=== PATIENT | male | born 1975 | race Two or more races ===

== ENCOUNTER 2024-04-01 20:41 | Emergency (ER) | payer OTHER ==
[~2024-04-01] VITALS: Ht 188 cm; Wt 81.6 kg
[~2024-04-01 20:41] MED LIST: BACL20TA PO; DOCU-270 PO; SENN-18 PO
[2024-04-01] MEDS ORDERED: MORPHINE SULFATE INJ 4 MG/ML DISP.SYRIN ONE (22:34)
[2024-04-01] MEDS ORDERED: ACETAMINOPHEN ES 500 MG TABLET ONE (22:34)
[2024-04-01] MEDS ORDERED: ONDANSETRON HCL/PF 4 MG/2 ML VIAL ONE (22:34)
[2024-04-01] MEDS: MORPHINE SULFATE INJ 2 MG/ML DISP.SYRIN IV ONE (22:45)
[2024-04-01] MEDS: ACETAMINOPHEN ES 500 MG TABLET PO ONE (22:45)
[2024-04-01] MEDS: ONDANSETRON HCL/PF 4 MG/2 ML VIAL IVP ONE (22:46)
[2024-04-01] MEDS: IV NS 0.9% 1,000 ML BAG IV ONE (22:46)
[2024-04-01 23:13] LABS: BASOPHILS % (AUTO) 0.4 % (0.0-2.0); EOSINOPHILS # (AUTO) 0.3 K/uL (0.0-0.7); EOSINOPHILS % (AUTO) 3.7 % (0.0-6.0); HEMATOCRIT 37 % (39-51); HEMOGLOBIN 12.2 g/dL (13.5-17.5); LYMPHOCYTES # (AUTO) 1.6 K/uL (0.8-4.8); LYMPHOCYTES % (AUTO) 20.6 % (20.0-44.0); MEAN CORPUSCULAR HEMOGLOBIN 26 PG (26.0-33.0); MEAN CORPUSCULAR HGB CONC 33 g/dl (31.0-36.0); MEAN CORPUSCULAR VOLUME 80 fL (80-96); MONOCYTES # (AUTO) 0.6 K/uL (0.1-1.30); MONOCYTES % (AUTO) 7.2 % (2.0-12.0); NEUTROPHILS # (AUTO) 5.2 K/uL (1.8-8.9); NEUTROPHILS % (AUTO) 68.1 % (43.0-81.0); PLATELET COUNT (AUTO) 385 K/uL (150-450); RED BLOOD CELL COUNT(AUTO) 4.68 MIL/uL (4.5-6.0); RED CELL DISTRIBUTION WIDTH 17.1 % (11.5-15.0); WHITE BLOOD COUNT (AUTO) 7.7 K/uL (4.3-11.0)
[2024-04-01 23:30] LABS: APPEARANCE,URINE CLEAR (CLEAR); BILIRUBIN,URINE NEGATIVE (NEGATIVE); BLOOD, URINE 1+ Ery/uL (NEGATIVE); COLOR,URINE YELLOW (YELLOW); KETONES,URINE NEGATIVE (NEGATIVE); LEUKOCYTE ESTERASE ,URINE 2+ (NEGATIVE); NITRITE, URINE POSITIVE (NEGATIVE); PH,URINE 6.5 (5.0-8.0); PROTEIN,URINE 2+ mg/dl (NEGATIVE); UGLUCOSE NEGATIVE (NEGATIVE); UROBILINOGEN,URINE 0.2 EU/dL (0.2)
[2024-04-01 23:33] LABS: ALANINE AMINOTRANSFERASE 23 U/L (12-78); ALBUMIN 3.4 g/dL (3.4-5.0); ALKALINE PHOSPHATASE 101 U/L (46-116); ASPARTATE AMINOTRANSFERASE 17 U/L (15-37); BILIRUBIN,DIRECT 0.1 mg/dL (0.0-0.2); BILIRUBIN,TOTAL 0.2 mg/dL (0.2-1.0); CALCIUM, SERUM 9.6 mg/dL (8.5-10.1); CARBON DIOXIDE 32 mmol/L (21-32); CHLORIDE 102 mmol/L (98-107); CREATININE 2.2 mg/dL (0.6-1.3); GLUCOSE 161 mg/dL (74-106); POTASSIUM 4.7 mmol/L (3.5-5.1); SODIUM SERUM 140 mmol/L (136-145); TOTAL PROTEIN, SERUM 7.7 g/dL (6.4-8.2); UREA NITROGEN, BLOOD 29 mg/dL (7-18)
[2024-04-01 23:35] LABS: INR 0.97 (0.91-1.10); PARTIAL THROMBOPLASTIN TIME 29.4 SEC (24.3-34.3); PROTHROMBIN TIME 10.3 SECS (9.2-11.1)
[2024-04-01 23:52] LABS: LACTIC ACID 2.6 mmol/L (0.4-2.0)
[2024-04-01] MEDS ORDERED: CEFTRIAXONE 1GM BAG (ER ONLY) 50 ML IV ONE (23:55)
[2024-04-01 23:59] LABS: ADD URINE CULTURE YES; BACTERIA,URINE 3+ /HPF (None Seen)
[2024-04-02] MEDS: CEFTRIAXONE 1GM BAG (ER ONLY) 1 GM/50 ML PIGGYBACK IV ONE (00:03)
[2024-04-02] MEDS ORDERED: CEFP200T14 PO (01:04)
[2024-04-02 01:16] VITALS: BP 145/86; TEMP 98.5; O2SAT 98
== END 2024-04-02 01:17 | disposition home or self-care (01) ==
LOC: ER 20:44
DX: N39.0 Urinary tract infection, site not specified (principal); G82.20 Paraplegia, unspecified; R00.0 Tachycardia, unspecified; Z87.440 Personal history of urinary (tract) infections; Z79.899 Other long term (current) drug therapy
CPT/HCPCS: 99284; 96365; 93005; 85025; 80048; 87040 ×2; 87086; 83605; 80076; 81001; 36415; 85730; 96367; 51702; J2270; J2405; J7030; J0696

== ENCOUNTER 2024-08-08 20:27 | Inpatient (IN) | payer OTHER ==
[~2024-08-08] VITALS: Ht 188 cm; Wt 93.0 kg
[~2024-08-08 20:27] MED LIST changes: +CEFP200T14 PO
[2024-08-08 21:53] LABS: BASOPHILS # (AUTO) 0.1 K/uL (0.0-0.2); BASOPHILS % (AUTO) 0.7 % (0.0-2.0); EOSINOPHILS # (AUTO) 0.4 K/uL (0.0-0.7); EOSINOPHILS % (AUTO) 4.5 % (0.0-6.0); HEMATOCRIT 30 % (39-51); HEMOGLOBIN 10.1 g/dL (13.5-17.5); LYMPHOCYTES # (AUTO) 1.1 K/uL (0.8-4.8); LYMPHOCYTES % (AUTO) 11.8 % (20.0-44.0); MEAN CORPUSCULAR HEMOGLOBIN 26 PG (26.0-33.0); MEAN CORPUSCULAR HGB CONC 34 g/dl (31.0-36.0); MEAN CORPUSCULAR VOLUME 78 fL (80-96); MONOCYTES # (AUTO) 0.8 K/uL (0.1-1.30); MONOCYTES % (AUTO) 8.2 % (2.0-12.0); NEUTROPHILS # (AUTO) 7.2 K/uL (1.8-8.9); NEUTROPHILS % (AUTO) 74.8 % (43.0-81.0); PLATELET COUNT (AUTO) 464 K/uL (150-450); RED BLOOD CELL COUNT(AUTO) 3.87 MIL/uL (4.5-6.0); RED CELL DISTRIBUTION WIDTH 16.5 % (11.5-15.0); WHITE BLOOD COUNT (AUTO) 9.7 K/uL (4.3-11.0)
[2024-08-08 22:07] LABS: CALCIUM, SERUM 10.4 mg/dL (8.5-10.1); CARBON DIOXIDE 27 mmol/L (21-32); CHLORIDE 97 mmol/L (98-107); GLUCOSE 123 mg/dL (74-106); POTASSIUM 4.9 mmol/L (3.5-5.1); SODIUM SERUM 135 mmol/L (136-145); UREA NITROGEN, BLOOD 42 mg/dL (7-18)
[2024-08-08 22:12] LABS: ALANINE AMINOTRANSFERASE 32 U/L (12-78); ALBUMIN 2.5 g/dL (3.4-5.0); ALKALINE PHOSPHATASE 97 U/L (46-116); ASPARTATE AMINOTRANSFERASE 28 U/L (15-37); BILIRUBIN,TOTAL 0.2 mg/dL (0.2-1.0); TOTAL PROTEIN, SERUM 8.2 g/dL (6.4-8.2)
[2024-08-08 22:20] LABS: BILIRUBIN,DIRECT 0.1 mg/dL (0.0-0.2)
[2024-08-08] MEDS: IV NS 0.9% 1,000 ML BAG IV ONE (23:05)
[2024-08-09] MEDS ORDERED: ONDANSETRON HCL/PF 4 MG/2 ML VIAL IVP PRN (00:30)
[2024-08-09] MEDS ORDERED: Z GUARD REMEDY 4 OZ OINT TP PRN (00:30)
[2024-08-09] MEDS ORDERED: MAGNESIUM HYDROXIDE 30 ML UDC PO PRN (00:30)
[2024-08-09 02:00] VITALS: BP 158/93; TEMP 97.9; O2SAT 98
[2024-08-09] MEDS: IV NS 0.9% 1,000 ML IV PRN (02:14)
[2024-08-09 02:17] LABS: APPEARANCE,URINE CLEAR (CLEAR); BILIRUBIN,URINE NEGATIVE (NEGATIVE); BLOOD, URINE TRACE-INTA Ery/uL (NEGATIVE); COLOR,URINE YELLOW (YELLOW); KETONES,URINE NEGATIVE (NEGATIVE); LEUKOCYTE ESTERASE ,URINE NEGATIVE (NEGATIVE); NITRITE, URINE NEGATIVE (NEGATIVE); PROTEIN,URINE 2+ mg/dl (NEGATIVE); UGLUCOSE NEGATIVE (NEGATIVE); UROBILINOGEN,URINE 0.2 EU/dL (0.2)
[2024-08-09 02:30] LABS: ADD URINE CULTURE NO; BACTERIA,URINE Rare /HPF (None Seen); WBC,URINE 0-2 /HPF (0-3)
[2024-08-09 02:31] LABS: SQUAMOUS EPITHELIAL CELL,UR Moderate /HPF (None Seen)
[2024-08-09] MEDS: SENNOSIDES 8.6 MG TABLET PO SCH (08:24)
[2024-08-09] MEDS: DOCUSATE SODIUM 100 MG CAPSULE PO SCH (08:24)
[2024-08-09 08:30] VITALS: BP 168/98; TEMP 98.6; O2SAT 98
[2024-08-09] MEDS ORDERED: EZET10TA32 PO (08:42)
[2024-08-09] MEDS ORDERED: ASPI-992 PO (08:42)
[2024-08-09] MEDS ORDERED: AMLO-212 PO (08:42)
[2024-08-09] MEDS ORDERED: HYDR100T27 PO (08:42)
[2024-08-09] MEDS ORDERED: LABE100T5 PO (08:42)
[2024-08-09] MEDS ORDERED: LOSA100T31 PO (08:42)
[2024-08-09 10:52] LABS: CREATININE, URINE 46.5 MG/DL (30.0-125.0); URINE TOTAL PROTEIN 150.5 mg/dL (0-11.9)
[2024-08-09] MEDS: LABETALOL HCL (100MG) 100 MG TABLET PO SCH (14:30)
[2024-08-09] MEDS: LOSARTAN POTASSIUM 50 MG TABLET PO SCH (14:30)
[2024-08-09] MEDS: AMLODIPINE BESYLATE 5 MG TABLET PO SCH (14:30)
[2024-08-09 15:52] VITALS: BP 158/94; TEMP 98.1; O2SAT 97
[2024-08-09] MEDS: BACLOFEN (10 MG) 10 MG TABLET PO SCH (16:49)
[2024-08-09] MEDS: MAG HYDROX/AL HYDROX/SIMETH 30 ML UDC PO PRN (16:50)
[2024-08-09] MEDS: EZETIMIBE 10 MG TABLET PO SCH (17:01)
[2024-08-09 20:00] VITALS: BP 165/103; TEMP 98.4; O2SAT 97
[2024-08-09] MEDS: ACETAMINOPHEN 325 MG TABLET PO PRN (20:22)
[2024-08-09] MEDS: hydrALAZINE HCL 50 MG TABLET PO SCH (21:09)
[2024-08-10] MEDS: MORPHINE SULFATE INJ 2 MG/ML DISP.SYRIN IV ONE (01:23)
[2024-08-10 07:27] LABS: BASOPHILS % (AUTO) 0.6 % (0.0-2.0); EOSINOPHILS # (AUTO) 0.7 K/uL (0.0-0.7); EOSINOPHILS % (AUTO) 8.1 % (0.0-6.0); HEMATOCRIT 27 % (39-51); LYMPHOCYTES % (AUTO) 24.5 % (20.0-44.0); MEAN CORPUSCULAR HEMOGLOBIN 26 PG (26.0-33.0); MEAN CORPUSCULAR HGB CONC 33 g/dl (31.0-36.0); MEAN CORPUSCULAR VOLUME 77 fL (80-96); MONOCYTES # (AUTO) 0.8 K/uL (0.1-1.30); MONOCYTES % (AUTO) 10.3 % (2.0-12.0); NEUTROPHILS # (AUTO) 4.6 K/uL (1.8-8.9); NEUTROPHILS % (AUTO) 56.5 % (43.0-81.0); PLATELET COUNT (AUTO) 458 K/uL (150-450); RED BLOOD CELL COUNT(AUTO) 3.53 MIL/uL (4.5-6.0); RED CELL DISTRIBUTION WIDTH 16.5 % (11.5-15.0); WHITE BLOOD COUNT (AUTO) 8.2 K/uL (4.3-11.0)
[2024-08-10 08:30] VITALS: BP 147/86; TEMP 98.4; O2SAT 96
[2024-08-10] MEDS ORDERED: AMLODIPINE BESYLATE 5 MG TABLET PO SCH (09:00)
[2024-08-10] MEDS ORDERED: LABETALOL HCL (100MG) 100 MG TABLET PO SCH (09:00)
[2024-08-10] MEDS ORDERED: LOSARTAN POTASSIUM 50 MG TABLET PO SCH (09:00)
[2024-08-10] MEDS: ASPIRIN 325 MG TABLET PO SCH (09:23)
[2024-08-10 09:28] LABS: ALBUMIN 2.1 g/dL (3.4-5.0); BILIRUBIN,TOTAL 0.2 mg/dL (0.2-1.0); CALCIUM, SERUM 9.4 mg/dL (8.5-10.1); CREATININE 2.5 mg/dL (0.6-1.3); MAGNESIUM 2.6 mg/dL (1.8-2.4); PHOSPHORUS 4.4 mg/dL (2.5-4.9)
[2024-08-10] MEDS: TRAMADOL HCL 50 MG TABLET PO SCH (12:30)
[2024-08-10 16:00] VITALS: BP 153/82; TEMP 98.4; O2SAT 98
[2024-08-10] MEDS: NA PHOS,M-B/NA PHOS,DI-BA 1 EA ENEMA RC ONE (16:37)
[2024-08-10 20:00] VITALS: BP 140/88; TEMP 98.1; O2SAT 96
[2024-08-11 07:12] LABS: BASOPHILS # (AUTO) 0.1 K/uL (0.0-0.2); BASOPHILS % (AUTO) 0.9 % (0.0-2.0); EOSINOPHILS # (AUTO) 0.7 K/uL (0.0-0.7); EOSINOPHILS % (AUTO) 10.4 % (0.0-6.0); HEMATOCRIT 28 % (39-51); HEMOGLOBIN 9.4 g/dL (13.5-17.5); LYMPHOCYTES # (AUTO) 1.9 K/uL (0.8-4.8); MEAN CORPUSCULAR HEMOGLOBIN 26 PG (26.0-33.0); MEAN CORPUSCULAR HGB CONC 34 g/dl (31.0-36.0); MEAN CORPUSCULAR VOLUME 77 fL (80-96); MONOCYTES # (AUTO) 0.7 K/uL (0.1-1.30); MONOCYTES % (AUTO) 10.4 % (2.0-12.0); NEUTROPHILS # (AUTO) 3.4 K/uL (1.8-8.9); NEUTROPHILS % (AUTO) 50.3 % (43.0-81.0); PLATELET COUNT (AUTO) 465 K/uL (150-450); RED BLOOD CELL COUNT(AUTO) 3.63 MIL/uL (4.5-6.0); RED CELL DISTRIBUTION WIDTH 16.6 % (11.5-15.0); WHITE BLOOD COUNT (AUTO) 6.8 K/uL (4.3-11.0)
[2024-08-11 07:30] VITALS: BP 128/73; TEMP 98.2; O2SAT 98
[2024-08-11 07:31] LABS: CALCIUM, SERUM 9.9 mg/dL (8.5-10.1); CREATININE 2.5 mg/dL (0.6-1.3); MAGNESIUM 2.7 mg/dL (1.8-2.4); PHOSPHORUS 5.4 mg/dL (2.5-4.9); POTASSIUM 4.9 mmol/L (3.5-5.1)
[2024-08-11 11:12] LABS: PTH, INTACT 24 pg/mL (15-65)
[2024-08-11 16:00] VITALS: BP 119/67; TEMP 98.1; O2SAT 100
[2024-08-11] MEDS: NA PHOS,M-B/NA PHOS,DI-BA 1 EA ENEMA RC ONE (19:45)
[2024-08-11 20:00] VITALS: BP 130/79; TEMP 98.1; O2SAT 96
[2024-08-11 20:30] VITALS: BP 130/79; TEMP 98.1; O2SAT 96
[2024-08-12] MEDS: HYDROCODONE/APAP 10/325MG TABLET PO PRN (01:50)
[2024-08-12 07:50] LABS: BASOPHILS % (AUTO) 0.6 % (0.0-2.0); EOSINOPHILS # (AUTO) 0.6 K/uL (0.0-0.7); EOSINOPHILS % (AUTO) 7.4 % (0.0-6.0); HEMATOCRIT 28 % (39-51); HEMOGLOBIN 9.5 g/dL (13.5-17.5); LYMPHOCYTES # (AUTO) 2.1 K/uL (0.8-4.8); LYMPHOCYTES % (AUTO) 25.9 % (20.0-44.0); MEAN CORPUSCULAR HEMOGLOBIN 26 PG (26.0-33.0); MEAN CORPUSCULAR HGB CONC 33 g/dl (31.0-36.0); MEAN CORPUSCULAR VOLUME 77 fL (80-96); MONOCYTES # (AUTO) 0.8 K/uL (0.1-1.30); MONOCYTES % (AUTO) 10.2 % (2.0-12.0); NEUTROPHILS # (AUTO) 4.6 K/uL (1.8-8.9); NEUTROPHILS % (AUTO) 55.9 % (43.0-81.0); PLATELET COUNT (AUTO) 496 K/uL (150-450); RED BLOOD CELL COUNT(AUTO) 3.69 MIL/uL (4.5-6.0); RED CELL DISTRIBUTION WIDTH 16.6 % (11.5-15.0); WHITE BLOOD COUNT (AUTO) 8.2 K/uL (4.3-11.0)
[2024-08-12 07:59] LABS: CALCIUM, SERUM 10.1 mg/dL (8.5-10.1); CREATININE 2.7 mg/dL (0.6-1.3); MAGNESIUM 2.6 mg/dL (1.8-2.4); PHOSPHORUS 6.2 mg/dL (2.5-4.9); POTASSIUM 5.5 mmol/L (3.5-5.1)
[2024-08-12 08:44] VITALS: BP 102/42; TEMP 98.2; O2SAT 97
[2024-08-12] MEDS ORDERED: ASPI-992 PO (09:46)
[2024-08-12] MEDS ORDERED: EZET10TA32 PO (09:46)
[2024-08-12] MEDS ORDERED: AMLO-212 PO (09:46)
[2024-08-12] MEDS ORDERED: SENN-18 PO (09:46)
[2024-08-12] MEDS ORDERED: LABE100T5 PO (09:46)
[2024-08-12] MEDS ORDERED: LOSA100T31 PO (09:46)
[2024-08-12] MEDS ORDERED: BACL20TA PO (09:46)
[2024-08-12] MEDS ORDERED: DOCU-270 PO (09:46)
[2024-08-12] MEDS ORDERED: HYDR100T27 PO (09:46)
[2024-08-12] MEDS: SODIUM ZIRCONIUM CYCLOSILICATE 10 GM POWD.PACK PO SCH (10:51)
[2024-08-12] MEDS: SEVELAMER CARBONATE 800 MG TABLET PO SCH (12:14)
[2024-08-12 12:30] LABS: THYROID STIMULATING HORMONE 1.06 uIU/mL (0.358-3.74)
[2024-08-12 16:20] VITALS: BP 132/77; TEMP 98.2; O2SAT 98
[2024-08-14 02:08] LABS: FOLIC ACID 5.1 ng/mL (>3.0)
== END 2024-08-12 16:46 | disposition home health service (06) | DRG 469 ==
LOC: ER 20:30 → MED 08-09 00:50
PROVIDERS: ADMIT Student in an Organized Health Care Education/Training Program; ATTEND Student in an Organized Health Care Education/Training Program
DX: N17.0 Acute kidney failure with tubular necrosis (principal); G82.20 Paraplegia, unspecified; E87.1 Hypo-osmolality and hyponatremia; I69.354 Hemiplegia and hemiparesis following cerebral infarction affecting left non-dominant side; I12.9 Hypertensive chronic kidney disease with stage 1 through stage 4 chronic kidney disease, or unspecified chronic kidney disease; Z87.828 Personal history of other (healed) physical injury and trauma; Z90.5 Acquired absence of kidney; Z85.528 Personal history of other malignant neoplasm of kidney; Z98.890 Other specified postprocedural states; Z79.899 Other long term (current) drug therapy; M89.8X9 Other specified disorders of bone, unspecified site; D64.9 Anemia, unspecified; E66.9 Obesity, unspecified; Z68.26 Body mass index [BMI] 26.0-26.9, adult; N18.4 Chronic kidney disease, stage 4 (severe); Z79.82 Long term (current) use of aspirin
CPT/HCPCS: 36415; 71045-TC; 76770-TC; 80048-TC; 80053-TC; 80076-TC; 81001; 82550-TC; 82570-TC; 82607-TC; 83735-TC; 83921; 83970; 84100-TC; 84155; 84165; 84300-TC; 84425; 84443-TC; 84484-TC; 85025-TC; 87086-TC; 97530-TC; 97535-TC; 98960; A4223; G0378; J2270; J7030